=== PATIENT | female | born 1980 | race Caucasian/White ===

== ENCOUNTER 2019-05-11 09:00 | Inpatient (IN) | payer OTHER ==
[~2019-05-11] VITALS: Ht 152.4 cm; Wt 93.0 kg
== END 2019-05-15 12:22 | disposition home or self-care (01) | DRG 807 ==
LOC: EDSTATUS 09:00 → ADM 09:00 → LDR 05-12 21:36 → OB/GYN 05-13 02:04
PROVIDERS: ADMIT Obstetrics & Gynecology
PROC: 3E033VJ Introduction of Other Hormone into Peripheral Vein, Percutaneous Approach (ICD-10-PCS; 2019-05-12)
PROC: 4A1HXCZ Monitoring of Products of Conception, Cardiac Rate, External Approach (ICD-10-PCS; 2019-05-12)
PROC: 10E0XZZ Delivery of Products of Conception, External Approach (ICD-10-PCS; principal; 2019-05-13)
PROC: 0KQM0ZZ Repair Perineum Muscle, Open Approach (ICD-10-PCS; 2019-05-13)
DX: O70.1 Second degree perineal laceration during delivery (principal); Z37.0 Single live birth; Z3A.39 39 weeks gestation of pregnancy

== ENCOUNTER 2019-05-12 18:16 | Outpatient (CLI) | payer OTHER | END 2019-05-12 21:43 | disposition still patient (30) | LOC: OBS/DEL 18:16 | DX: O47.1 False labor at or after 37 completed weeks of gestation (principal); Z34.83 Encounter for supervision of other normal pregnancy, third trimester ==